=== PATIENT | female | born 1955 | race Caucasian/White ===

== ENCOUNTER → 2017-01-07 | Outpatient (CLI) | payer OTHER | END | disposition home or self-care (01) | LOC: C.PAPS 10:19 | PROVIDERS: ATTEND Physician Assistant | DX: Z12.4 Encounter for screening for malignant neoplasm of cervix (principal) ==

== ENCOUNTER → 2017-02-08 | Outpatient (CLI) | payer OTHER ==
[2017-02-08 12:26] LABS: HEMATOCRIT 44.3 % (37-47); MEAN CELL VOLUME 86.2 fL (80-100); MEAN CORPUSCULAR HEMOGLOBIN 28.6 pg (25-34); MEAN CORPUSCULAR HGB CONC 33.2 g/dl (32-36); MEAN PLATELET VOLUME 10.4 fL (7.4-10.4); PLATELET COUNT 223 K/uL (130-400); RED BLOOD COUNT 5.14 M/uL (4.2-5.4); WHITE BLOOD COUNT 5.38 K/uL (4.8-10.8)
[2017-02-08 12:58] LABS: BLOOD UREA NITROGEN 16 mg/dl (7-18); BUN/CREATININE RATIO 21.6 (10-20); CARBON DIOXIDE 26 mmol/L (21-32); CHLORIDE 109 mmol/L (98-107); CREATININE 0.74 mg/dl (0.60-1.20); GLUCOSE 92 mg/dl (70-99); POTASSIUM 3.7 mmol/L (3.5-5.1); SODIUM 144 mmol/L (136-145)
[2017-02-08 13:01] LABS: CALCIUM 8.5 mg/dl (8.5-10.1)
[2017-02-08 13:02] LABS: CHOLESTEROL 186 mg/dl (0-200); CHOLESTEROL/HDL RATIO 2.5; HDL CHOLESTEROL 74 mg/dl; LDL CHOLESTEROL CALCULATED 93 mg/dl; TRIGLYCERIDES 93 mg/dl (0-150); VERY LOW DENSITY LIPOPROT CALC 19 mg/dl
[2017-02-08 14:35] LABS: ESTIMATED AVERAGE GLUCOSE 94 mg/dl; HA1C FLAG Normal (Normal)
== END | disposition home or self-care (01) ==
LOC: C.LABPBG 08:05
PROVIDERS: ATTEND Family Medicine
DX: Z00.00 Encounter for general adult medical examination without abnormal findings (principal); Z13.220 Encounter for screening for lipoid disorders; Z13.1 Encounter for screening for diabetes mellitus; Z11.59 Encounter for screening for other viral diseases

== ENCOUNTER → 2017-03-09 | Outpatient (CLI) | payer OTHER ==
--- NOTE | 2017-03-10 14:08 | MAMMOGRAPHY REPORT ---
BILATERAL DIGITAL DIAGNOSTIC MAMMOGRAM TOMOSYNTHESIS WITH CAD AND TARGETED BILATERAL ULTRASOUND: 02/15 CLINICAL HISTORY: 62-year-old woman presents with a palpable lump in the lateral left breast. Also overdue for bilateral screening mammography. TECHNIQUE: Bilateral CC and MLO 2-D digital intervals of this is images, bilateral spot magnificati on views and 2-D left XCCL views were obtained. Current study was also evaluated with a Computer ded Detection (CAD) system. COMPARISON: Comparison is made to exams dated: 06/05/2015 mammogram, 06/13/2015 mammogram, 03/11/2010 mammogram, 03/04/2010 mammogram, 12/07/2005 mammogram, and 11/30/2001 mammogram - [facility]. BREAST COMPOSITION: The tissue of both breasts is heterogeneously dense, which may obscure small ma sses. FINDINGS: A triangular palpable marker overlies the skin of the approximate 3:00 left breast, denoti ng the lump pointed out by the patient. There are diffuse pleomorphic microcalcifications throughou t the entire left breast that are increasing comparing to the prior 2014 and 2009 mammograms. There is an incompletely visualized dense 11 mm mass in the far posterior left breast along the posterior nipple line on each view. No other definite mass is seen in the left breast. No focal area of arc hitectural distortion. There is a possible 13 mm mass in the upper inner anterior right breast, for which additional evalua tion with ultrasound was performed. A few layering microcalcifications are seen in a group within t he anterior superior right breast, and other scattered benign-appearing coarse calcifications are pr esent in the right breast. No focal area of architectural distortion is identified. Targeted ultrasound was performed in each breast and in the left axilla. In the 3:00 axis of the le ft breast, 4 cm from the nipple, correlating with the palpable and visible lump pointed out by the p atient, there is a hypoechoic mass with indistinct borders measuring approximately 13.7 x 13.0 x 14. 2 mm. This likely correlates with the incompletely visualized mammographic mass in the far posterio r aspect of the breast. It is suspicious for malignancy and definitive characterization with ultras ound guided core biopsy is recommended. There is clumped hypoechoic tissue with internal calcificat ions differing in texture from the adjacent tissue in the 3:00 periareolar left breast, which may co rrelate with a cluster of calcifications seen mammographically. This measures approximately 14.7 x 16.1 mm. No other definite discrete mass is seen throughout the left breast on ultrasound. Sonogra phic evaluation of the left axilla demonstrates a lymph node with eccentric cortical thickening jing uring up to 7 mm. This is suspicious for metastatic disease and definitive characterization with ti ssue sampling is recommended. Sonographic evaluation performed in the right breast demonstrates a microlobulated isoechoic to slig htly hypoechoic solid-appearing mass in the 8:00 axis, 2 cm from the nipple, measuring 6.3 x 5.4 x 7 .2 mm. Another lobulated and circumscribed hypoechoic solid mass is identified in the 12:00 right b reast, 1 cm from the nipple, measuring 13.8 x 6.5 x 10.0 mm. Given the solid nature of both of thes e masses, definitive characterization with ultrasound guided core biopsy is recommended. IMPRESSION: ACR BI-RADS CATEGORY 5: HIGHLY SUGGESTIVE OF MALIGNANCY, TARGETED ULTRASOUND ACR BI-RAD S CATEGORY 5: HIGHLY SUGGESTIVE OF MALIGNANCY 1. Left breast ultrasound guided core biopsy is recommended for a suspicious solid palpable 14 mm m ass in the 3:00 axis, 4 cm from the nipple. 2. Left axillary lymph node ultrasound-guided core biopsy is recommended for a lymph node with ecce ntric cortical thickening. 3. There are diffuse pleomorphic microcalcifications in clusters and groupings throughout the entir e left breast, increasing compared to prior available mammograms. 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 Stereotactic guided left breast biopsy is recommended in the medial and anterior lef t breast of a cluster of pleomorphic microcalcifications, to assess for the possibility of multicent rafita disease, given that this is a different quadrant from the palpable mass in the 3:00 axis. 4. Ultrasound guided core needle biopsy is recommended for two indeterminate solid masses located i n the right 8:00 and 12:00 axes. These results and recommendations were discussed with the patient at the time of the exam. She tent atively scheduled the biopsies prior to leaving the department. Approximately 10% of breast cancers are not detected with mammography. A negative mammographic repor t should not delay biopsy if a clinically suggestive mass is present. Shilpa Fulton M.D. ay/:03/09/2017 15:21:29 Immigration Guard: Henna Sahni RT(R)(M), [facility] letter sent: Abnormal 4/5 BI-RADS Code: ACR BI-RADS Category 5: Highly Suggestive Of Malignancy Ultrasound BI-RADS: ACR BI-RA DS Category 5: Highly Suggestive Of Malignancy
== END | disposition home or self-care (01) ==
LOC: C.MAMM 08:22
PROVIDERS: ATTEND Obstetrics & Gynecology
DX: N63 Unspecified lump in breast (principal); R92.0 Mammographic microcalcification found on diagnostic imaging of breast

== ENCOUNTER → 2017-09-20 | Outpatient (CLI) | payer OTHER ==
--- NOTE | 2017-09-20 21:16 | ECHOCARDIOGRAM REPORT ---
*NOTICE TO RECEIVING CONSTITUTION PARTY AGENCY This information is strictly Confidential and protected under [place] law. [place] law prohibits you from making any further disclosure of this information unless further disclosure is expressly permitted by the written consent of the person to whom it pertains or is authorized by law. A general authorization for the release of medical or other information is not sufficient for this purpose. Hospital accepts no responsibility if the information is made available to any other person, INCLUDING THE PATIENT. Interpretation Summary * Name: SENIA HERNANDEZ Study Date: 09/20/2017 01:43 PM BP: 140/66 mmHg * Patient Location: [facility] HR: 87 * : 1955 (M/d/yyyy) Gender: Female Height: 64 in * Age: 62 yrs Ethnicity: CA Weight: 147 lb * Ordering Physician: Andrea Moreno * Referring Physician: Andrea Moreno * Performed By: Maris Mattson RDCS * * Reason For Study: MONITORING EF ON HERCEPTIN * BSA: 1.7 m2 * -- Conclusions -- * 1. Normal left ventricular size and systolic function. EF 55-60%. No definite regional wall motion abnormalities. No left ventricular hypertrophy. * 2. No significant valvular abnormalities. * 3. Normal estimated right ventricular systolic pressure. * 4. No prior study available for comparison. Procedure Details * A complete two-dimensional transthoracic echocardiogram was performed (2D, M-mode, Doppler and color flow Doppler). Left Ventricle * Normal left ventricular size and systolic function. EF 55-60%. No definite regional wall motion abnormalities. No left ventricular hypertrophy. Right Ventricle * The right ventricle is normal in size and function. * The right ventricular systolic function is normal as assessed by tricuspid annular plane systolic excursion (TAPSE) (normal >1.5 cm). Atria * The left atrium is borderline dilated. * Right atrial size is normal. * There is no evidence of atrial septal defect, but resolution does not allow assessment for a patent foramen ovale. Mitral Valve * There is systolic anterior motion of the chordal apparatus. * No significant LVOT obstruction. * There is no mitral valve stenosis. * There is trace mitral regurgitation. Tricuspid Valve * The tricuspid valve is not well visualized, but is grossly normal. * There is no tricuspid stenosis. * There is trace tricuspid regurgitation. Aortic Valve * The aortic valve is trileaflet. * No hemodynamically significant valvular aortic stenosis. * No aortic regurgitation is present. Pulmonic Valve * The pulmonary valve is inadequately visualized, but the Doppler data is adequate for interpretation. * There is no pulmonic valvular stenosis. * There is no significant pulmonary regurgitation. Great Vessels * The aortic root is normal size. * Aortic arch of normal dimension. Pericardium/Pleural * There is no pericardial effusion. Great Vessels * Normal inferior vena cava size and collapsability with sniff indicates a normal right atrial pressure of 3 mmHg Left Ventricular Diastolic Function * Diastolic dysfunction, Grade II (pseudonormalization pattern). MMode 2D Measurements and Calculations IVSd 1.1 cm IVSs 1.5 cm LVIDd 4.6 cm LVIDs 3.0 cm LVPWd 1.1 cm LVPWs 2.0 cm IVS/LVPW 0.99 FS 35.1 % EDV(Teich) 97.7 ml ESV(Teich) 34.7 ml EF(Teich) 64.5 % EDV(cubed) 97.8 ml ESV(cubed) 26.7 ml EF(cubed) 72.7 % % IVS thick 31.7 % % LVPW thick 77.7 % LV mass(C)d 185.5 grams LV mass(C)dI 108.1 grams/m\S\2 LV mass(C)s 201.2 grams LV mass(C)sI 117.3 grams/m\S\2 SV(Teich) 63.0 ml SI(Teich) 36.7 ml/m\S\2 SV(cubed) 71.1 ml SI(cubed) 41.4 ml/m\S\2 Ao root diam 2.9 cm Ao root area 6.4 cm\S\2 LA dimension 3.6 cm LA/Ao 1.3 LVAd ap4 25.3 cm\S\2 LVLd ap4 7.3 cm EDV(MOD-sp4) 75.4 ml EDV(sp4-el) 74.5 ml LVAs ap4 14.2 cm\S\2 LVLs ap4 5.8 cm ESV(MOD-sp4) 32.8 ml ESV(sp4-el) 29.9 ml EF(MOD-sp4) 56.5 % EF(sp4-el) 59.9 % LVAd ap2 22.7 cm\S\2 LVLd ap2 6.8 cm EDV(MOD-sp2) 66.3 ml EDV(sp2-el) 64.1 ml LVAs ap2 14.9 cm\S\2 LVLs ap2 6.5 cm ESV(MOD-sp2) 28.5 ml ESV(sp2-el) 28.8 ml EF(MOD-sp2) 56.9 % EF(sp2-el) 55.0 % LVLd %diff -7.40 % EDV(MOD-bp) 73.1 ml LVLs %diff 12.2 % ESV(MOD-bp) 32.8 ml EF(MOD-bp) 55.2 % SV(MOD-sp4) 42.6 ml SI(MOD-sp4) 24.8 ml/m\S\2 SV(MOD-sp2) 37.7 ml SI(MOD-sp2) 22.0 ml/m\S\2 SV(MOD-bp) 40.4 ml SI(MOD-bp) 23.5 ml/m\S\2 SV(sp4-el) 44.6 ml SI(sp4-el) 26.0 ml/m\S\2 SV(sp2-el) 35.3 ml SI(sp2-el) 20.6 ml/m\S\2 Doppler Measurements and Calculations MV E max pratima 98.5 cm/sec MV A max pratima 97.9 cm/sec MV E/A 1.0 MV dec time 0.16 sec Ao V2 max 139.8 cm/sec Ao max PG 7.8 mmHg Ao max PG (full) 4.7 mmHg LV V1 max PG 3.1 mmHg LV V1 max 88.0 cm/sec TR max pratima 222.3 cm/sec RVSP(TR) 22.8 mmHg RAP systole 3.0 mmHg
== END | disposition home or self-care (01) ==
LOC: C.CPL 13:36
PROVIDERS: ATTEND Internal Medicine Hematology & Oncology
DX: C50.512 Malignant neoplasm of lower-outer quadrant of left female breast (principal)

== ENCOUNTER 2017-10-17 21:04 | Emergency (ER) | payer OTHER ==
[~2017-10-17] VITALS: Ht 165.1 cm; Wt 67.8 kg
[2017-10-17 21:16] VITALS: Ht 165.1 cm; Wt 67.8 kg
[2017-10-17] MEDS ORDERED: SODIUM CHLORIDE 0.9% 1000ML 2,000 ML IV STA (21:33)
[2017-10-17] MEDS ORDERED: KETOROLAC TROMETHAMINE 30 MG/ML VIAL IV STA (21:33)
[2017-10-17] MEDS ORDERED: ACETAMINOPHEN 500 MG TAB PO STA (21:33)
[2017-10-17] MEDS ORDERED: FERR1TAB23 PO (21:41)
[2017-10-17] MEDS ORDERED: CALC600T9 PO (21:41)
[2017-10-17] MEDS ORDERED: ACET-1256 PO (21:41)
[2017-10-17] MEDS ORDERED: LISI-461 PO (21:41)
--- NOTE | 2017-10-17 21:57 | DIAGNOSTIC IMAGING REPORT ---
SINGLE VIEW CHEST CLINICAL HISTORY: Generalized abdominal pain. FINDINGS: An AP, portable, upright chest radiograph is obtained. No prior studies are available for comparison at the time of dictation. The examination is degraded by portable technique and patient rotation. A right-sided central venous infusion port is in place. The tip of the catheter projects over the cavoatrial junction. The heart is top normal for projection and there is mild atherosclerotic calcification of the thoracic aorta. The lungs and pleural spaces are clear. No pneumothorax is seen. The skeletal structures are osteopenic. The bony thorax is grossly intact. Surgical clips and a surgical drain is are in the left axilla. IMPRESSION: No acute cardiopulmonary abnormality. Electronically signed by: Jake Murphy M.D. 10/17/2017 9:55 PM Dictated Date/Time: 10/17/2017 9:54 PM
[2017-10-17 22:35] LABS: BASO % 0.1 %; BASO ABS # 0.01 K/uL (0-0.2); EOS % 0.2 %; EOS ABS # 0.02 K/uL (0-0.5); HEMATOCRIT 33.5 % (37-47); HEMOGLOBIN 10.9 g/dL (12.0-16.0); IG# 0.03 K/uL (0.00-0.02); LYMPH % 7.3 %; LYMPH ABS # 0.83 K/uL (1.2-3.4); MEAN CELL VOLUME 92.5 fL (80-100); MEAN CORPUSCULAR HEMOGLOBIN 30.1 pg (25-34); MEAN CORPUSCULAR HGB CONC 32.5 g/dl (32-36); MEAN PLATELET VOLUME 9.5 fL (7.4-10.4); MONO % 5.7 %; MONO ABS # 0.65 K/uL (0.11-0.59); NEUT % 86.4 %; NEUT ABS # 9.79 K/uL (1.4-6.5); PLATELET COUNT 162 K/uL (130-400); RED CELL DISTRIBUTION WIDTH CV 15.2 % (11.5-14.5); RED CELL DISTRIBUTION WIDTH SD 51.9 fL (36.4-46.3); WHITE BLOOD COUNT 11.33 K/uL (4.8-10.8)
[2017-10-17 22:56] LABS: ALBUMIN 2.9 gm/dl (3.4-5.0); ALT/SGPT 33 U/L (12-78); BLOOD UREA NITROGEN 21 mg/dl (7-18); CALCIUM 8.6 mg/dl (8.5-10.1); CARBON DIOXIDE 29 mmol/L (21-32); CREATININE 0.91 mg/dl (0.60-1.20); GLUCOSE 114 mg/dl (70-99); LIPASE 286 U/L (73-393); POTASSIUM 3.5 mmol/L (3.5-5.1); SODIUM 139 mmol/L (136-145)
[2017-10-17 22:59] LABS: ALKALINE PHOSPHATASE 81 U/L (45-117); AST/SGOT 42 U/L (15-37); TOTAL PROTEIN 6.9 gm/dl (6.4-8.2)
[2017-10-17] MEDS ORDERED: SODIUM CHLORIDE 0.9% 1000ML 1,000 ML IV STA (23:05)
[2017-10-17] MEDS ORDERED: CEFAZOLIN SOD 1000MG/7.5 ML IV PUSH IV STA (23:05)
[2017-10-17 23:09] LABS: INFLUENZA B ANTIGEN Neg for Influ B (NEG)
[2017-10-17] MEDS ORDERED: OPTIRAY 320 IV PRN (23:30)
[2017-10-18 00:04] LABS: INFLUENZA A PCR Neg for Influ A (NEG); INFLUENZA B PCR Neg for Influ B (NEG)
[2017-10-18] MEDS ORDERED: CEPH500C PO ×2 (01:47→02:10)
--- NOTE | 2017-10-18 01:48 | EMERGENCY ROOM VISIT NOTE ---
History Report prepared by Aurelia: Serenity Lay Under the Supervision of: Dr. Malik Eugene M.D. First contact with patient: 21:20 Chief Complaint: FLU LIKE SX Stated Complaint: ACHES,FEVER,CHILLS,HEART FLUTTERS History of Present Illness The patient is a 62 year old female who presents to the Emergency Room with complaints of worsening flu like symptoms starting this afternoon. The patient states that she had a left mastectomy and right lumpectomy two weeks ago. She reports that she still has a drain in on the left because she is still pumping out a bunch. She states that they did so as a second step to treat cancer. She reports that she has already had chemotherapy and they would like to do more radiation. She reports that she woke up this morning feeling achy and fatigued. The patient complains of a fever and chills developing by the afternoon. She notes that this has increased since she had surgery. The patient notes that she took one 500 mg Tylenol 4.5 hours ago. The patient complains of her incision site increasing in redness, numbness over her incision, and left shoulder pain. The patient denies diarrhea, nausea, vomiting, and abdominal pain. Source of History: patient Onset: this afternoon Position: other (global) Quality: ache Timing: worsening Modifying Factors (Relieving): tylenol Associated Symptoms: + fevers, + chills, + fatigue, + numbness, No nausea, No vomiting, No abdominal pain, No diarrhea Note: The patient complains of redness over incision and left shoulder pain. Review of Systems See HPI for pertinent positives and negatives. A total of ten systems were reviewed and were otherwise negative. Past Medical & Surgical Medical Problems: (1) HX: breast cancer Surgical Problems: (1) Hx of lumpectomy (2) Hx of mastectomy Family History No pertinent family history Social History Smoking Status: Never Smoker Marital Status: Housing Status: lives with significant other Current/Historical Medications Scheduled Calcium Carbonate-Vitamin D (Calcium + D), 1 TAB PO Q2D Cephalexin Monohydrate (Keflex), 500 MG PO QID Ferrous Sulfate (Iron), 325 MG PO DAILY Lisinopril (Zestril), 10 MG PO DAILY Scheduled PRN Acetaminophen (Tylenol), 500 MG PO UD PRN for Pain or Fever Allergies Coded Allergies: Sulfa Antibiotics (Verified Allergy, Unknown, Unknown, 10/17/17) As a child Uncoded Allergies: UNKNOWN ANTIBIOTIC(PANALDA) (Allergy, Unknown, Unknown, 10/17/17) As a child Physical Exam Vital Signs Date Time Temp Pulse Resp B/P (MAP) Pulse Ox O2 Delivery O2 Flow Rate FiO2 10/18/17 02:16 37.1 94 20 129/82 98 10/18/17 01:09 101 10/18/17 01:01 139/82 10/18/17 00:01 143/86 10/17/17 23:00 106 23 143/86 96 Room Air 10/17/17 22:53 147/94 10/17/17 22:31 111 10/17/17 22:30 105 24 98 10/17/17 21:16 37.7 130 18 151/86 100 Room Air Physical Exam GENERAL: Awake, alert, well-appearing, in no distress HENT: Normocephalic, atraumatic. Dry mucus membranes. EYES: Normal conjunctiva. Sclera non-icteric. NECK: Supple. No nuchal rigidity. FROM. No JVD. RESPIRATORY: Clear to auscultation. CARDIAC: Regular rate, normal rhythm. Extremities warm and well perfused. Pulses equal. ABDOMEN: Soft, non-distended. No tenderness to palpation. No rebound or guarding. No masses. RECTAL: Deferred. MUSCULOSKELETAL: Chest examination reveals no tenderness. The back is symmetrical on inspection without obvious abnormality. There is no CVA tenderness to palpation. No joint edema. Right lumpectomy surgical scar. Clean, dry, and intact. Left mastectomy incision site with mild erythema and warmth. No crepitus or discharge. Serosanguineous discharge to surgical drain. LOWER EXTREMITIES: Calves are equal size bilaterally and non-tender. No edema. No discoloration. NEURO: Normal sensorium. No sensory or motor deficits noted. SKIN: No rash or jaundice noted. Medical Decision & Procedures ER Provider Diagnostic Interpretation: Radiology results as stated below per my review and radiologist interpretation: SINGLE VIEW CHEST CLINICAL HISTORY: Generalized abdominal pain. FINDINGS: An AP, portable, upright chest radiograph is obtained. No prior studies are available for comparison at the time of dictation. The examination is degraded by portable technique and patient rotation. A right-sided central venous infusion port is in place. The tip of the catheter projects over the cavoatrial junction. The heart is top normal for projection and there is mild atherosclerotic calcification of the thoracic aorta. The lungs and pleural spaces are clear. No pneumothorax is seen. The skeletal structures are osteopenic. The bony thorax is grossly intact. Surgical clips and a surgical drain is are in the left axilla. IMPRESSION: No acute cardiopulmonary abnormality. Electronically signed by: Jake Murphy M.D. 10/17/2017 9:55 PM Dictated Date/Time: 10/17/2017 9:54 PM CTA CHEST: Comparison: None No evidence of pulmonary embolism. No aortic aneurysm or dissection. Mild interlobular septal thickening and upper lobes. Subsegmental likely atelectatic changes. Surgical drain in the left axilla with postsurgical changes at left breast compatible with mastectomy. Pocket of air and fluid in right breast that could represent seroma or abscess measuring up to 5.0 x 2.6 cm. Correlate for recent surgery in right breast. 4 mm sclerotic lesion in the manubrium is nonspecific and may represent a bone island or metastasis. Right sided chemotherapy port. Multiple presumed hepatic cysts, measuring fluid attenuation. Radiologist: Dany Morris MD Study ready at 00:10 and initial results transmitted at 00:56. Laboratory Results 10/17/17 21:55 Red Blood Count 3.62, Mean Corpuscular Volume 92.5, Mean Corpuscular Hemoglobin 30.1, Mean Corpuscular Hemoglobin Concent 32.5, Mean Platelet Volume 9.5, Neutrophils (%) (Auto) 86.4, Lymphocytes (%) (Auto) 7.3, Monocytes (%) (Auto) 5.7, Eosinophils (%) (Auto) 0.2, Basophils (%) (Auto) 0.1, Neutrophils # (Auto) 9.79, Lymphocytes # (Auto) 0.83, Monocytes # (Auto) 0.65, Eosinophils # (Auto) 0.02, Basophils # (Auto) 0.01 10/17/17 21:55 Test 10/17/17 21:55 10/17/17 22:17 10/17/17 22:29 10/18/17 00:18 White Blood Count 11.33 K/uL (4.8-10.8) Red Blood Count 3.62 M/uL (4.2-5.4) Hemoglobin 10.9 g/dL (12.0-16.0) Hematocrit 33.5 % (37-47) Mean Corpuscular Volume 92.5 fL (80-100) Mean Corpuscular Hemoglobin 30.1 pg (25-34) Mean Corpuscular Hemoglobin Concent 32.5 g/dl (32-36) Platelet Count 162 K/uL (130-400) Mean Platelet Volume 9.5 fL (7.4-10.4) Neutrophils (%) (Auto) 86.4 % Lymphocytes (%) (Auto) 7.3 % Monocytes (%) (Auto) 5.7 % Eosinophils (%) (Auto) 0.2 % Basophils (%) (Auto) 0.1 % Neutrophils # (Auto) 9.79 K/uL (1.4-6.5) Lymphocytes # (Auto) 0.83 K/uL (1.2-3.4) Monocytes # (Auto) 0.65 K/uL (0.11-0.59) Eosinophils # (Auto) 0.02 K/uL (0-0.5) Basophils # (Auto) 0.01 K/uL (0-0.2) RDW Standard Deviation 51.9 fL (36.4-46.3) RDW Coefficient of Variation 15.2 % (11.5-14.5) Immature Granulocyte % (Auto) 0.3 % Immature Granulocyte # (Auto) 0.03 K/uL (0.00-0.02) Anion Gap 5.0 mmol/L (3-11) Est Creatinine Clear Calc Drug Dose 59.2 ml/min Estimated GFR () 79.5 Estimated GFR (Non- 68.6 BUN/Creatinine Ratio 23.4 (10-20) Calcium Level 8.6 mg/dl (8.5-10.1) Total Bilirubin 0.3 mg/dl (0.2-1) Direct Bilirubin < 0.1 mg/dl (0-0.2) Aspartate Amino Transf (AST/SGOT) 42 U/L (15-37) Alanine Aminotransferase (ALT/SGPT) 33 U/L (12-78) Alkaline Phosphatase 81 U/L (45-117) Lactate Dehydrogenase 224 U/L (84-246) Total Protein 6.9 gm/dl (6.4-8.2) Albumin 2.9 gm/dl (3.4-5.0) Lipase 286 U/L (73-393) Bedside Lactic Acid Venous 1.49 mmol/L (0.90-1.70) Urine Crystals (NONE PRSENT) Urine Pathogenic Casts /lpf (0) Urine Yeast (Auto) (NONE PRSENT) Influenza Type A (RT-PCR) Neg for Influ A (NEG) Influenza Type A Antigen Neg for Influ A (NEG) Influenza Type B Antigen Neg for Influ B (NEG) Influenza Type B (RT-PCR) Neg for Influ B (NEG) Urine Color YELLOW Urine Appearance CLEAR (CLEAR) Urine pH 7.0 (4.5-7.5) Urine Specific Carson 1.009 (1.000-1.030) Urine Protein NEG (NEG) Urine Glucose (UA) NEG (NEG) Urine Ketones NEG (NEG) Urine Occult Blood NEG (NEG) Urine Nitrite NEG (NEG) Urine Bilirubin NEG (NEG) Urine Urobilinogen NEG (NEG) Urine Leukocyte Esterase TRACE (NEG) Urine WBC (Auto) 1-5 /hpf (0-5) Urine RBC (Auto) 0-4 /hpf (0-4) Urine Hyaline Casts (Auto) 0 /lpf (0-5) Urine Epithelial Cells (Auto) 0-5 /lpf (0-5) Urine Bacteria (Auto) NEG (NEG) Laboratory results reviewed by me Medications Administered Medications (Trade) Dose Ordered Sig/Cortez Route Start Time Stop Time Status Last Admin Dose Admin Ketorolac Tromethamine (Toradol Inj) 15 mg NOW STAT IV 10/17/17 21:33 10/17/17 21:37 DC 10/17/17 22:18 15 MG Acetaminophen (Tylenol Tab) 1,000 mg NOW STAT PO 10/17/17 21:33 10/17/17 21:37 DC 10/17/17 22:18 1,000 MG Sodium Chloride 2,000 ml @ 999 mls/hr Q2H1M STAT IV 10/17/17 21:33 10/17/17 23:33 DC 10/17/17 22:17 999 MLS/HR Sodium Chloride 1,000 ml @ 999 mls/hr Q1H1M STAT IV 10/17/17 23:05 10/18/17 00:05 DC 10/17/17 23:05 999 MLS/HR Cefazolin Sodium (Cefazolin 1000mg Iv Push) 1,000 mg NOW STAT IV 10/17/17 23:05 10/17/17 23:09 DC 10/17/17 23:40 1,000 MG Cephalexin Monohydrate (Keflex 500MG Home Pack) 1 homepack NOW ONCE PO 10/18/17 02:00 10/18/17 02:01 DC 10/18/17 01:57 1 HOMEPACK ECG Indication: chest pain Rate (beats per minute): 102 Rhythm: sinus tachycardia Findings: no acute ischemic change, other (normal axis) ED Course 2131: The patient was evaluated in room C5. A complete history and physical exam was performed. 2334: I reevaluated the patient and she reports that she is fine unless she moves. She states that when she moves she has pain in her chest that radiates to her back and shoulder. 0120: I reevaluated the patient and she is feeling better. 0141: I discussed the patient's case with Dr. Tracey Joe Surgeon. She agrees with the plan and will leave a note for Dr. Aggarwal. 0150: I reevaluated the patient. Discussed results and discharge instructions: She verbalized understanding and agreement. The patient is ready for discharge. Medical Decision I reviewed the patient's past medical history, medications, and the nursing notes as described above. Differential diagnoses include cellulitis, abscess, viral illness, influenza, pneumonia, bronchitis, UTI. 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 Arrival the patient is uncomfortable but in no acute distress. Temp 37.7 and tahcy to 130s. BP stable. Patient appearing clinically dry. Patient does have mild erythema to the left mastectomy incision site with mild warmth however no edema or crepitus or purulent discharge. Left mastectomy REBECCA drain with stable serosanguineous discharge per patient. Labs demonstrate a mild leukocytosis to 11 and BUN/Cr > 20 suggesting dedydration. Lactate wnl. Influenza negative. CT of the chest was done and stat read preliminary read was negative for evidence of abscess on the left. Her was question of seroma versus abscess on the right however patient without any symptoms this side thus likely seroma. Cultures were drawn and culture of the patient's REBECCA drainage was sent for culture. Otherwise patient was given an IV dose of Cefazolin for cellulitis. She was given IV fluid hydration with improvement in her tachycardia to 90s low 100s. Patient feeling much improved. Case was discussed with Dr. Palma, surgeon information systems project manager for patient's surgeon Dr. Aggarwal, agrees with plan for antibiotics and close outpatient follow-up. Findings and plan for follow-up reviewed with patient. Patient agreeable and d/c 'd per discharge instructions. Medication Reconcilliation Current Medication List: was personally reviewed by me Blood Pressure Screening Patient's blood pressure: Elevated blood pressure Blood pressure disposition: Elevated BP felt to be situational Consults Time Called: 0123 Consulting Physician: Dr. Tracey Joe Surgeon Returned Call: [phone] I discussed the patient's case with Dr. Tracey Joe Surgeon. She agrees with the plan and will leave a note for Dr. Aggarwal. Impression Primary Impression: Cellulitis Scribe Attestation The scribe's documentation has been prepared under my direction and personally reviewed by me in its entirety. I confirm that the note above accurately reflects all work, treatment, procedures, and medical decision making performed by me. Departure Information Dispostion Home / Self-Care Prescriptions Cephalexin Monohydrate (Keflex) 500 Mg Cap 500 MG PO QID, #28 CAP Prov: Malik Eugene M.D. 10/18/17 Referrals Estela Márquez DO (PCP) Forms HOME CARE DOCUMENTATION FORM, IMPORTANT VISIT INFORMATION Patient Instructions Cellulitis Dc, My [facility] Additional Instructions Please follow up with your surgeon, Dr. Aggarwal, tomorrow for re-evaluation. You likely have skin infection at your surgical site. Otherwise, your exam, CT scan, and lab results did not show signs of an emergent condition at this time. Keflex as directed. Drink plenty of fluids to ensure hydration. Return to the emergency department for worsening symptoms as described in the accompanying instructions.
[2017-10-18] MEDS ORDERED: CEPHALEXIN 500MG HOME PACK 1 EA BTL PO ONE (02:00)
[2017-10-18 02:16] VITALS: BP 129/82; PULSE 94; TEMP 37.1; O2SAT 98
--- NOTE | 2017-10-18 06:52 | DIAGNOSTIC IMAGING REPORT ---
CT ANGIOGRAM OF THE CHEST CLINICAL HISTORY: Chest pain, possible pulmonary embolism. History of left mastectomy. COMPARISON STUDY: Chest x-ray dated 10/17/2017 TECHNIQUE: Following the IV administration of 85 mL of Optiray-320, CT angiogram of the thorax was performed from the thoracic inlet to the lung bases utilizing the pulmonary embolus protocol. Images are reviewed in the axial, sagittal, and coronal planes. IV contrast was administered without complication. MIP imaging was performed. A dose lowering technique was utilized adhering to the principles of ALARA. CT DOSE: 235.01 mGy.cm FINDINGS: There are multiple hypodense hepatic lesions, the largest of which measures 38 mm and is located within the left lobe. These approach water attenuation and may represent cysts. There is a right-sided A-Port catheter present. There are borderline enlarged hilar lymph nodes. There was no evidence of thoracic aortic dilatation. There were no pulmonary artery filling defects to indicate acute pulmonary embolism. No pleural effusions are visualized. There are dependent atelectatic changes present. There is mild septal thickening/edema. There is a nonspecific 4 mm sclerotic lesion within the manubrium There is gas/fluid collection present within the right breast. Please can't with history of recent surgery. There are postmastectomy changes on the left. There is diffuse left-sided chest wall edema. There is a left-sided surgical drain. Surgical clips are visualized in the left axillary region. IMPRESSION: 1. No evidence of acute pulmonary embolism 2. Mild septal thickening/edema 3. Air-fluid level within the right breast. Please correlate with history of recent intervention. 4. Postsurgical changes of a recent left mastectomy Electronically signed by: Manuel Junior M.D. 10/18/2017 6:51 AM Dictated Date/Time: 10/18/2017 6:44 AM
--- NOTE | 2017-10-19 15:37 | Pharmacy Progress Note ---
ED Pharmacist Culture FollowUp Date of Service: Oct 19, 2017. Patient initially presented with fever, chills and wound infection post left mastectomy and was discharged on cephalexin, which the patient will continue. Called patient regarding MRSA wound culture. Prescription for doxycycline called to [facility] in [place] at the patient's request. I also phoned the results to Dr. Moreno (oncologist) and faxed [phone]) the results to Dr. Aggarwal (surgeon) at the patients request. Case discussed with Dr. Conley, who is the prescribing provider.
[2017-11-08] MEDS ORDERED: CLR10 PO (09:14)
[2017-11-08] MEDS ORDERED: NUTRLIQ21 PO (09:14)
[2017-11-08] MEDS ORDERED: PROC10TA PO (09:14)
[2017-11-08] MEDS ORDERED: ONDA-170 PO (09:14)
== END 2017-10-18 02:17 | disposition home or self-care (01) ==
LOC: C.EDB 21:06 → C.EDC 10-18 02:17
DX: N61.0 Mastitis without abscess (principal); Z85.3 Personal history of malignant neoplasm of breast; Z90.2 Acquired absence of lung [part of]; Z90.13 Acquired absence of bilateral breasts and nipples; R00.0 Tachycardia, unspecified; Z79.899 Other long term (current) drug therapy; Z88.2 Allergy status to sulfonamides

== ENCOUNTER → 2018-01-10 | Outpatient (CLI) | payer OTHER ==
[~2018-01-10] MED LIST: ACET-1256 PO; CALC600T9 PO; CLR10 PO; FERR1TAB23 PO; LISI-461 PO; NUTRLIQ21 PO; ONDA-170 PO; PROC1TAB5 PO
--- NOTE | 2018-01-10 16:26 | ECHOCARDIOGRAM REPORT ---
*NOTICE TO RECEIVING [employer] This information is strictly Confidential and protected under [place] law. [place] law prohibits you from making any further disclosure of this information unless further disclosure is expressly permitted by the written consent of the person to whom it pertains or is authorized by law. A general authorization for the release of medical or other information is not sufficient for this purpose. Hospital accepts no responsibility if the information is made available to any other person, INCLUDING THE PATIENT. Interpretation Summary * Name: SENIA HERNANDEZ Study Date: 01/10/2018 01:50 PM BP: 120/88 mmHg * Patient Location: [facility] HR: 70 * : 1955 (M/d/yyyy) Gender: Female Height: 64 in * Age: 62 yrs Ethnicity: CA Weight: 147 lb * Ordering Physician: Andrea Moreno * Referring Physician: Andrea Moreno * Performed By: Emerald Garcia RDCS * * Reason For Study: Breast Cancer female (C50.512) * BSA: 1.7 m2 * -- Conclusions -- * Left ventricular systolic function is normal. * Right ventricular systolic pressure is normal. * Compared to study from 09/20/2017, no significant change Procedure Details * A complete two-dimensional transthoracic echocardiogram was performed (2D, M-mode, Doppler and color flow Doppler). Left Ventricle * The left ventricle is normal in size. * There is normal left ventricular wall thickness. * Ejection Fraction = 50-55%. * Left ventricular systolic function is normal. * The left ventricular wall motion is normal. Right Ventricle * The right ventricle is normal in size and function. * The right ventricular systolic function is normal as assessed by tricuspid annular plane systolic excursion (TAPSE) (normal >1.5 cm). Atria * The left atrial size is normal. * Right atrial size is normal. Mitral Valve * The mitral valve anatomy is normal. * There is a redundant versus flail chordae that was seen on an examination in 09/2017. * There is trace mitral regurgitation. Tricuspid Valve * The tricuspid valve is not well visualized, but is grossly normal. * There is trace tricuspid regurgitation. * Right ventricular systolic pressure is normal. Aortic Valve * The aortic valve is normal in structure and function. * The aortic valve is trileaflet. * There is no significant aortic regurgitation. Great Vessels * The aortic root is normal size. Pericardium/Pleural * There is no pericardial effusion. Great Vessels * Normal inferior vena cava diameter and respiratory variation suggests normal central venous pressure. MMode 2D Measurements and Calculations IVSd 1.1 cm IVSs 1.3 cm LVIDd 4.7 cm LVIDs 3.4 cm LVPWd 0.88 cm LVPWs 1.4 cm IVS/LVPW 1.2 FS 28.4 % EDV(Teich) 102.4 ml ESV(Teich) 46.2 ml EF(Teich) 54.9 % EDV(cubed) 103.9 ml ESV(cubed) 38.1 ml EF(cubed) 63.4 % % IVS thick 22.5 % % LVPW thick 62.3 % LV mass(C)d 159.2 grams LV mass(C)dI 92.8 grams/m\S\2 LV mass(C)s 158.3 grams LV mass(C)sI 92.2 grams/m\S\2 SV(Teich) 56.2 ml SI(Teich) 32.7 ml/m\S\2 SV(cubed) 65.8 ml SI(cubed) 38.3 ml/m\S\2 Ao root diam 2.2 cm Ao root area 3.7 cm\S\2 ACS 1.8 cm LA dimension 3.5 cm LA/Ao 1.6 LVAd ap4 27.9 cm\S\2 LVLd ap4 7.1 cm EDV(MOD-sp4) 95.8 ml EDV(sp4-el) 93.1 ml LVAs ap4 16.4 cm\S\2 LVLs ap4 5.8 cm ESV(MOD-sp4) 43.4 ml ESV(sp4-el) 39.3 ml EF(MOD-sp4) 54.7 % EF(sp4-el) 57.8 % LVAd ap2 22.5 cm\S\2 LVLd ap2 6.3 cm EDV(MOD-sp2) 67.7 ml EDV(sp2-el) 67.8 ml LVAs ap2 13.7 cm\S\2 LVLs ap2 5.9 cm ESV(MOD-sp2) 29.4 ml ESV(sp2-el) 26.7 ml EF(MOD-sp2) 56.6 % EF(sp2-el) 60.6 % LVLd %diff -12.23 % EDV(MOD-bp) 85.3 ml LVLs %diff 1.9 % ESV(MOD-bp) 35.1 ml EF(MOD-bp) 58.8 % SV(MOD-sp4) 52.5 ml SI(MOD-sp4) 30.6 ml/m\S\2 SV(MOD-sp2) 38.3 ml SI(MOD-sp2) 22.3 ml/m\S\2 SV(MOD-bp) 50.1 ml SI(MOD-bp) 29.2 ml/m\S\2 SV(sp4-el) 53.8 ml SI(sp4-el) 31.4 ml/m\S\2 SV(sp2-el) 41.1 ml SI(sp2-el) 23.9 ml/m\S\2 Doppler Measurements and Calculations MV E max pratima 110.0 cm/sec MV A max pratima 100.5 cm/sec MV E/A 1.1 MV dec time 0.18 sec Ao V2 max 132.9 cm/sec Ao max PG 7.1 mmHg Ao max PG (full) 3.3 mmHg LV V1 max PG 3.7 mmHg LV V1 max 96.6 cm/sec PA V2 max 76.4 cm/sec PA max PG 2.3 mmHg PI max pratima 154.0 cm/sec PI max PG 9.5 mmHg PI dec slope 224.5 cm/sec\S\2 PI P1/2t 200.9 msec TR max pratima 206.9 cm/sec
== END | disposition home or self-care (01) ==
LOC: C.CPL 13:42
PROVIDERS: ATTEND Internal Medicine Hematology & Oncology
DX: C50.512 Malignant neoplasm of lower-outer quadrant of left female breast (principal)

== ENCOUNTER → 2018-02-09 | Outpatient (CLI) | payer OTHER ==
--- NOTE | 2018-02-09 19:05 | ECHOCARDIOGRAM REPORT ---
*NOTICE TO RECEIVING [employer] This information is strictly Confidential and protected under [place] law. [place] law prohibits you from making any further disclosure of this information unless further disclosure is expressly permitted by the written consent of the person to whom it pertains or is authorized by law. A general authorization for the release of medical or other information is not sufficient for this purpose. Hospital accepts no responsibility if the information is made available to any other person, INCLUDING THE PATIENT. Interpretation Summary * Name: SENIA HERNANDEZ Study Date: 02/09/2018 02:59 PM BP: 128/92 mmHg * Patient Location: [facility] HR: 69 * : 1955 (M/d/yyyy) Gender: Female Height: 64 in * Age: 62 yrs Ethnicity: [place] Weight: 150 lb * Ordering Physician: Nick Stauffer * Referring Physician: Nick Stauffer D.O. * Performed By: Emerald Garcia RDCS * * Reason For Study: Neoplasm * BSA: 1.7 m2 * -- Conclusions -- * 1. Normal LV size. Mild concentric LVH. * 2. LVEF 45-50 %. No regional wall motion abnormalities. * 3. Normal RV size and function. * 4. Mild mitral regurgitation. * 5. Normal estimated PA and RA pressures. * 6. Compared with prior study on 01/10/2018: LV function minimally reduced. Procedure Details * A complete two-dimensional transthoracic echocardiogram was performed (2D, M-mode, Doppler and color flow Doppler). Left Ventricle * The left ventricle is grossly normal size. * There is borderline concentric left ventricular hypertrophy. * Ejection Fraction = 45-50%. Right Ventricle * The right ventricle is grossly normal size. * There is mild right ventricular hypertrophy. * The right ventricular systolic function is normal as assessed by tricuspid annular plane systolic excursion (TAPSE) (normal >1.5 cm). Atria * The left atrial size is normal. * Right atrial size is normal. * No ASD detected; PFO is not assessed. Mitral Valve * The mitral valve is grossly normal. * Redundant chordae * There is no mitral valve stenosis. * There is mild mitral regurgitation. Tricuspid Valve * There is trace tricuspid regurgitation. Aortic Valve * The aortic valve opens well. * The aortic valve is trileaflet. * No hemodynamically significant valvular aortic stenosis. Pulmonic Valve * The pulmonary valve is inadequately visualized, but the Doppler data is adequate for interpretation. * Pulmonic stenosis is absent. * There is no significant pulmonary regurgitation. Great Vessels * The aortic root and proximal ascending aorta are normal sized. Pericardium/Pleural * There is no pericardial effusion. Great Vessels * Normal inferior vena cava size and collapsability with sniff indicates a normal right atrial pressure of 3 mmHg MMode 2D Measurements and Calculations IVSd 1.1 cm IVSs 1.2 cm LVIDd 4.3 cm LVIDs 3.1 cm LVPWd 0.99 cm LVPWs 1.6 cm IVS/LVPW 1.1 FS 29.6 % EDV(Teich) 85.0 ml ESV(Teich) 36.6 ml EF(Teich) 56.9 % EDV(cubed) 81.8 ml ESV(cubed) 28.6 ml EF(cubed) 65.1 % % IVS thick 8.3 % % LVPW thick 62.3 % LV mass(C)d 153.8 grams LV mass(C)dI 88.8 grams/m\S\2 LV mass(C)s 143.8 grams LV mass(C)sI 83.1 grams/m\S\2 SV(Teich) 48.3 ml SI(Teich) 27.9 ml/m\S\2 SV(cubed) 53.2 ml SI(cubed) 30.8 ml/m\S\2 Ao root diam 2.6 cm Ao root area 5.3 cm\S\2 ACS 1.6 cm LA dimension 2.8 cm LA/Ao 1.1 LVAd ap4 27.5 cm\S\2 LVLd ap4 7.2 cm EDV(MOD-sp4) 88.6 ml EDV(sp4-el) 88.8 ml LVAs ap4 17.4 cm\S\2 LVLs ap4 6.3 cm ESV(MOD-sp4) 44.3 ml ESV(sp4-el) 40.6 ml EF(MOD-sp4) 50.0 % EF(sp4-el) 54.3 % LVAd ap2 17.6 cm\S\2 LVLd ap2 6.3 cm EDV(MOD-sp2) 44.9 ml EDV(sp2-el) 41.9 ml LVAs ap2 11.7 cm\S\2 LVLs ap2 5.5 cm ESV(MOD-sp2) 22.3 ml ESV(sp2-el) 21.0 ml EF(MOD-sp2) 50.4 % EF(sp2-el) 49.8 % LVLd %diff -14.99 % EDV(MOD-bp) 67.1 ml LVLs %diff -15.33 % ESV(MOD-bp) 33.8 ml EF(MOD-bp) 49.7 % SV(MOD-sp4) 44.3 ml SI(MOD-sp4) 25.6 ml/m\S\2 SV(MOD-sp2) 22.6 ml SI(MOD-sp2) 13.1 ml/m\S\2 SV(MOD-bp) 33.3 ml SI(MOD-bp) 19.3 ml/m\S\2 SV(sp4-el) 48.2 ml SI(sp4-el) 27.9 ml/m\S\2 SV(sp2-el) 20.9 ml SI(sp2-el) 12.1 ml/m\S\2 Doppler Measurements and Calculations MV E max pratima 61.7 cm/sec MV A max pratima 97.9 cm/sec MV E/A 0.63 MV dec time 0.17 sec Ao V2 max 140.0 cm/sec Ao max PG 7.8 mmHg Ao max PG (full) 4.2 mmHg LV V1 max PG 3.6 mmHg LV V1 max 95.3 cm/sec PA V2 max 73.8 cm/sec PA max PG 2.2 mmHg TR max pratima 198.8 cm/sec
== END | disposition home or self-care (01) ==
LOC: C.CPL 14:54
PROVIDERS: ATTEND Internal Medicine Hematology & Oncology
DX: C50.512 Malignant neoplasm of lower-outer quadrant of left female breast (principal)

== ENCOUNTER → 2018-02-09 | Outpatient (CLI) | payer OTHER ==
[2018-02-09 14:04] VITALS: BP 148/96; PULSE 95; TEMP 36.7; O2SAT 98
--- NOTE | 2018-02-09 16:15 | Radiation Oncology Follow-Up ---
Radiation Oncology Follow-Up Date of Visit Feb 09, 2018. Reason For Visit One-month follow-up in cancer survivorship care plan Radiation Completion Date 01/09/18 Diagnosis (1) Malignant neoplasm of central portion of left breast in female, estrogen receptor negative Status: Acute Onset Date: 03/17/2017 Histology Subtype: Ductal Stage: ll (A) Permanent Comment: Self detected left breast mass Status post mammography with bilateral abnormalities Status post core needle biopsies revealing right breast fibroadenoma and intraductal papilloma Left breast invasive ductal carcinoma grade 3 03/17/2017 Estrogen receptor negative, progesterone receptor negative, HER-2/laci positive Clinical staging cT1c cN1M0 Status post neoadjuvant chemotherapy, 6 cycles TC-HP Status post left mastectomy and left axillary lymph node dissection, right lumpectomy performed 10/03/2017 Right breast, benign Left breast, stage ypTIb ypN1a M0 Status post completion of radiation therapy January 09, 2018. She received 6120 cGy. Conventional therapy was given to the left chest wall, supraclavicular area, and axilla. Last Edited By: Kasey Enamorado on Jan 17, 2018 11:32 History of Present Illness Ms. Brothers is without a family history of breast cancer. She presented with a palpable mass in the left breast. Therefore on 03/09/2017 patient underwent bilateral digital diagnostic mammogram and targeted bilateral ultrasound. A triangular palpable marker was placed over the palpable lesion at the 3 o'clock position of the left breast. There were diffuse pleomorphic microcalcifications throughout the entire left breast that have increased compared to the prior studies in 2015. There was incomplete visualization of a 11 mm mass in the far posterior left breast. There was a possible 13 mm mass in the upper and inner anterior right breast. Targeted ultrasound of the left breast and axilla 4 cm from the nipple at the 3:00 axis revealed a hypoechoic mass with indistinct borders measuring 1.4 x 1.3 x 1.4 cm corresponding with the mammographic mass and suspicious for malignancy. Ultrasound-guided core biopsy was recommended. In addition there was a clump hypoechoic tissue with internal calcifications in the adjacent tissue which could correlate with a cluster of calcifications seen mammographically measuring 1.5 ultrasound of the left axilla demonstrated a lymph node measuring up to 7 mm that was suspicious for metastatic disease. In the right breast a(hypoechoic solid-appearing mass at the 8:00 axis 2 cm from the nipple was noted measuring 0.6 x 0.5 x 0.7 cm. A second lobulated hypoechoic mass was noted at the 12 o'clock position of the right breast 1 cm from the nipple measuring 1.4 x 0.7 x 1.0 cm. Biopsies of these lesions were recommended. On 03/17/2017 biopsy of the right breast mass at 12:00 and 8 o'clock position and stereotactic biopsy of left breast mass and lymph node were performed. The results of the biopsy of the 12 o'clock position of the right breast revealed a fibroadenoma negative for in situ and invasive carcinoma. Biopsy from the right breast 8 o'clock position revealed an intraductal papilloma with extensive ductal hyperplasia. Biopsy from the left medial anterior breast showed DCIS high-grade with necrosis and comedo DCIS with microcalcifications present. This lesion was estrogen receptor positive and progesterone receptor negative. At the 3 o'clock position of the left breast was an infiltrating ductal carcinoma grade 3 of 3 with high-grade DCIS. No perineural or angiolymphatic space invasion was identified. Estrogen receptors were negative , progesterone receptors were negative and HER-2/laci was positive. Biopsy of the left axillary lymph node was positive for infiltrating ductal carcinoma. Case: [id number]. Patient subsequently went to [facility] for further evaluation and workup recommendations. The tissue was reviewed at [facility] with agreement. Accession #: [id number]. The patient underwent bilateral breast MRIs with without contrast on 03/28/2017. This showed a non-mass enhancement in the left breast of consistent with the known malignancy. A non-mass enhancement in the left breast at the 3:00 anterior depth was consistent with the biopsy-proven DCIS. An irregular 2 cm mass was noted in the central aspect of the left breast at posterior depth 8 cm in the nipple consistent with the biopsy-proven invasive ductal carcinoma. There was a non-mass enhancement in the left breast was highly suggestive of malignancy. A clump non-mass enhancement in a segmental this fusion in the lower inner quadrant of the left breast extending from 7 cm from the biopsy-proven invasive carcinoma that was highly concerning for extensive multifocal multicentric malignancy. A non-mass enhancement in the right breast is benign and surgical consult was recommended a round mass in the right breast is benign. Axillary adenopathy is consistent with the biopsy- proven metastatic robert disease. A left internal mammary lymph node measuring up to 6 mm was suspicious and indeterminate. Given these findings neoadjuvant chemotherapy was discussed after the patient was seen by Dr. Andrea Moreno. She received neoadjuvant TC-HPV from June 04 through September 07. On 09/21/2017 patient underwent repeat bilateral breast MRIs. This showed interval decrease in the size of the previously biopsied infiltrating ductal carcinoma in the left posterior rest with residual enhancement. A small residual 5 mm enhancing mass anteriorly at the 3 o'clock position. Minimal residual enhancement 3 o'clock position and interval decrease in left axillary adenopathy. These were consistent with a clinical response. Patient went on to have a left breast mastectomy on 10/03/2017. She also underwent underwent a right breast lumpectomy. This confirmed an intraductal papilloma with no carcinoma. In the left breast mastectomy there was residual invasive ductal carcinoma, poorly differentiated consistent with a partial response to neoadjuvant chemotherapy. The residual disease measured 6 mm. There was residual ductal carcinoma in situ with high nuclear grade measuring at least 1.5 mm. All margins were negative for invasive carcinoma and DCIS. Invasive carcinoma was 2 mm from the deep margin. LCIS classic type was identified. 2 sentinel lymph nodes were taken and were metastatic with micrometastatic disease and extranodal extension. 2 additional sentinel lymph nodes were benign and an additional 13 lymph nodes were negative. There was evidence of lymphovascular invasion but no evidence of dermal focal vascular invasion. The initial clinical stage was a IIA ( cT1c pN1 cM0). The final posttreatment pathologic stage was stage IIa ( ypT1b ypN1a cM0). ER negative, OR negative and HER-2/laci positive. The patient did not wish to receive breast reconstruction. CT scan of the chest on 10/17/2017 showed multiple hypodense hepatic lesions the largest of which measuring 3.8 cm that approach water attenuation and likely representing cysts. She will continue her Herceptin. She presents today to discuss the role of adjuvant radiation. She completed systemic chemotherapy and return to our office to undergo radiation therapy. Treatment was completed January 09, 2018. She received 6120 cGy Interim History She has been doing well over the past month. Skin irritation healed without difficulty. She is noticed no discomfort of the chest wall. There is been no changes of the axilla. She was found to have lymphedema during therapy. She was referred to the lymphedema clinic. She was given instructions on massage as well as the sleeve. The lymphedema has resolved. The her septum was held due to some changes on echocardiogram. She is for a recheck if this is resolved she will restart the Herceptin. Echocardiogram today. She has not had any problems with cording. She had physical therapy and this resolved. Allergies Coded Allergies: Sulfa Antibiotics (Verified Allergy, Unknown, Unknown, 10/17/17) As a child Uncoded Allergies: UNKNOWN ANTIBIOTIC(PANALDA) (Allergy, Unknown, Unknown, 10/17/17) As a child Home Medications Scheduled Calcium Carbonate-Vitamin D (Calcium + D), 1 TAB PO Q2D Ferrous Sulfate (Iron), 325 MG PO 3XWK Lisinopril (Zestril), 10 MG PO DAILY Nutritional Supplements ([place] Instant Breakfa), 1 CAN PO DAILY Scheduled PRN Acetaminophen (Tylenol), 500 MG PO UD PRN for Pain or Fever Loratadine (Claritin), 10 MG PO DAILY PRN for Seasonal Allergies Review of Systems Gastrointestinal: Symptoms: WNL Oral: Symptoms: No Problems Respiratory: Symptoms: WNL Respiratory Comments: nasal congestion Urinary: Symptoms: WNL Comments: has a prolapsed uterus , need to position abd sometimes Skin: Symptoms: No Problems Breast: Right Upper Arm Measurement: 27.5 Right Mid Arm Measurement: 22.0 Right Wrist Measurement: 15.5 Left Upper Arm Measurement: 26.5 Left Mid Arm Measurement: 21.5 Left Wrist Measurement: 15.5 Arm Dominence: Right Physical Exam Vital Signs Date Time Temp Pulse Resp B/P (MAP) Pulse Ox O2 Delivery O2 Flow Rate FiO2 02/09/18 14:04 36.7 95 16 148/96 98 Fatigue: None General Appearance: no apparent distress Eyes: normal inspection, EOMI ENT: normal ENT inspection, hearing grossly normal Neck: no adenopathy, thyroid normal Respiratory/Chest: lungs clear, no respiratory distress, no accessory muscle use Breast: Examination of the breasts shows status post mastectomy on the left. The chest wall has resolving hyperpigmentation. There are no masses or tenderness and no axillary adenopathy. There is prominence of the anterior upper rib cage due to her thin body habitus. The right breast showed no masses or tenderness and no axillary adenopathy. Cardiovascular: regular rate, rhythm, no gallop, no murmur Extremities: no pedal edema Neurologic/Psychiatric: no motor/sensory deficits, alert Skin: warm/dry Lymphatic: no adenopathy Pain Management Patient Reports Pain: No Pain Location: None Patient Preferred Pain Scale: 0 - 10 Initial Pain Intensity: 0.0 Pain Management Plan She denies pain therefore requires no pain management. Laboratory Laboratory Results: not applicable Pathology Pathology Results: were reviewed, and pertinent findings noted in HPI Imaging Imaging Studies: not applicable Assessment & Plan Plan: Continue regular follow-up with her primary care provider, breast surgeon , and medical oncologist. She is having an echocardiogram today to determine if she qualifies to restart Herceptin. She will need to continue annual mammography for her right breast. Today we completed a cancer survivorship care plan. A copy of the document was given to the patient. She was given a survivorship booklet. We asked her to return to our office in 6 months. She may call if she has any questions or concerns in the interim. She will continue massage therapy to prevent recurrence of the lymphedema as well as stretching exercises to prevent cording. Total Time In Follow-Up I spent 20 minutes speaking to the patient in performing examination. I spent 20 minutes reviewing information, preparing the survivorship document, and completing this note. Copy To Shane Aggarwal M.D.; Andrea Moreno MD; Estela Márquez,
== END | disposition home or self-care (01) ==
LOC: C.ONC 13:53
PROVIDERS: ATTEND Physician Assistant Medical
DX: Z08 Encounter for follow-up examination after completed treatment for malignant neoplasm (principal); Z92.3 Personal history of irradiation; Z85.3 Personal history of malignant neoplasm of breast